=== PATIENT | male | born 1980 | race Hispanic/Latino ===

== ENCOUNTER → 2021-06-27 | Outpatient (CLI) | payer MEDICAID | END | disposition home or self-care (01) | LOC: RAH 09:19 | PROVIDERS: ATTEND Internal Medicine Pulmonary Disease | DX: I51.7 Cardiomegaly (principal); R55 Syncope and collapse; Z99.3 Dependence on wheelchair | CPT/HCPCS: 93306; 93356 ==

== ENCOUNTER → 2024-09-11 | Outpatient (CLI) | payer MEDICAID | END | disposition home or self-care (01) | LOC: RAH 14:22 | PROVIDERS: ATTEND Family Medicine | DX: N50.82 Scrotal pain (principal) | CPT/HCPCS: 76870 ==